=== PATIENT | male | born 1975 | race Caucasian/White ===

== ENCOUNTER 2021-06-09 00:27 | Emergency (ER) | payer MEDICAID, SELFPAY ==
[2021-06-09] VITALS (24 sets, daily range): BP systolic 94–150; BP diastolic 53–92; PULSE 64–122; RESP 15–43; TEMP 37.1; O2SAT 94–98
--- NOTE | 2021-06-09 00:30 | DI.RAD_ITS ---
Exam(s) XR PORTABLE CHEST AP EXAM: XR PORTABLE CHEST AP CLINICAL HISTORY: sob TECHNIQUE: 2D digital imaging was performed of the chest. One image was obtained. An AP view was ob tained. COMPARISON: No exams were available for comparison FINDINGS: MEDIASTINUM: Normal. HEART: Normal. PULMONARY VASCULATURE: Normal. LUNGS: Clear. PLEURAL SPACE: No pleural effusion or pneumothorax. BONE:Within normal limits for the patient's age. Cervical fixation hardware seen in the lower cervica l spine. OTHER FINDINGS:Normal. IMPRESSION: No acute pulmonary findings. DATA REPOSITORY: RADIATION DOSE DELIVERED:
--- NOTE | 2021-06-09 00:30 | RT.EKG_ITS ---
APPROVED REPORT Exam: Resting ECG Reason for Exam: sob Patient Location: E HR:102 bpm ECG Measurements Heart Rate 102 AXIS AK 165 P 81 QRSd 120 QRS 34 QT 361 T 38 QTc 471 Conclusion Sinus tachycardia...rate> 99 IVCD, consider RBBB...QRSd>120mS, terminal axis(90,270) ST elev, probable normal early repol pattern...ST elevation, age<55 PHysician: Sinus tachycardia, rate 102, intervals demonstrate a QTC of 470, and a QRS of 120, interve ntricular conduction delay, concern for right bundle branch block. No STEMI. No significant ST elev ation or depression.
--- NOTE | 2021-06-09 00:46 | ED.GENADUL_ITS ---
Discharge Plan Disposition Patient Disposition: HOME Condition: Good Discharge Details Clinical Impression: Anxiety Primary Care Provider: Lawrence Basurto ED Provider: Dereje Hyde Home Meds and New Rx's Prescriptions: No Action bupropion HCl [Wellbutrin XL] 150 mg tablet extended release 24 hr 150 mg PO QAM RF: 0 Discharge Instructions Instructions: Anxiety (ED) Additional Instructions: Your work-up has returned and is very reassuring. No evidence of a heart attack, pneumonia, or significant electrolyte abnormality. There is some blood in your urine, this may have been from a passed kidney stone. Please drink plenty of fluids, stay well-hydrated. Taking 3 days of crack cocaine is hard on your body, and your kidneys. Please avoid cocaine, and drink plenty of fluids and get plenty of rest. If you notice continued blood in your urine or pain come back for reassessment for potential on passed kidney stone. We have contacted the aircraft launch and recovery technician. They will contact you to help with any help or assistance you need battling the use of these medications. If you notice any worsening of your symptoms, or any new symptoms such as vomiting, diarrhea, fever, chills, shortness of breath, chest pain, numbness, weakness, or fainting , please return immediately to the emergency department for reevaluation. Please follow up with your primary care provider as soon as possible for reassessment and reevaluation. As always, it was a pleasure participating in your medical care today. Referrals: Lawrence Basurto [Primary Care Provider] - Medical Decision Making 46-year-old male who denies any significant past medical history except for previous kidney stones, GERD, left nasal polyp, anxiety, who presents today for medical evaluation. Patient states that for the last 3 days he has been doing notable amounts of crack cocaine. Last time he used was 2 to 3 hours ago. He states that he currently feels extremely jittery, short of breath, and states that he was fearful for his life. However he denies any homicidal or suicidal ideations. He has not had his Covid vaccine. He denies any hemoptysis. He denies IV drug use. He states he only smokes the cocaine. He denies any fever or chills. He does admit to his urine turning darker over the last day. No other complaints at this time. No other modifying factors. Physical exam demonstrates a tachycardic mildly tachypneic male with no hypoxemia. Lung sounds are clear. Mucous membranes are extremely dry. Differential is highest for withdrawal from his notable cocaine use over the last 3 days, but also Covid and dehydration and so the differential. We will rehydrate, monitor closely, and reassess. 2:45 AM Patient's Covid test has returned negative, chest x-ray negative for process. Patient does have minimal white count but no bandemia. Likely from 3 days straight of crack cocaine. Electrolytes normal. Creatinine is 1.8, GFR 41. Pneumonia unremarkable, CK unremarkable. Troponin negative. Thyroid function normal. Urine drug screen is positive for cocaine and cannabis. Alcohol negative. There is some blood noted the patient's urine. Repeat abdominal exam continues to show no abdominal or flank tenderness. Patient does have a notable history of kidney stones, likely from recently passed stone, or current small stone. With no abdominal pain otherwise to speak of there is no indication for emergent CT imaging. Recommend continued hydration at home and NSAIDs if needed. I did discuss with the patient how cocaine is challenging to a person's body, how some of his laboratory work-up is likely reflection of this. Recommended avoidance of cocaine, and follow-up with aircraft launch and recovery technician. If you notice any worsening of your symptoms, or any new symptoms such as vomiting, diarrhea, fever, chills, shortness of breath, chest pain, numbness, weakness, or fainting , please return immediately to the emergency department for reevaluation. Please follow up with your primary care provider as soon as possible for reassessment and reevaluation. As always, it was a pleasure participating in your medical care today. EKG 00: 55 Sinus tachycardia, rate 102, intervals demonstrate a QTC of 470, and a QRS of 120, interventricular conduction delay, concern for right bundle branch block. No STEMI. No significant ST elevation or depression. FINDINGS: Limitations: Imaging was obtained with lordotic patient positioning. Lungs: The lung padilla appear clear. Pleural spaces: No pleural effusion or pneumothorax is seen. Heart/Mediastinum: Cardiac monitoring leads overlie the exam. Heart size is normal. The mediastinal contours appear normal. Bones/joints: Lower anterior cervical fixation hardware is partially visualized. The visualized bony structures appear grossly intact, as seen. IMPRESSION: No active disease is seen in the chest. Thank you for allowing us to participate in the care of your patient. Dictated and Authenticated by: Armando Brady MD 06/09/2021 2:21 AM Eastern Time ([place] & [place]) HPI General Date/Time Provider Initiated Documentation: 06/09/21 00:35 . HPI Narrative: 46-year-old male who denies any significant past medical history except for previous kidney stones, GERD, left nasal polyp, anxiety, who presents today for medical evaluation. Patient states that for the last 3 days he has been doing notable amounts of crack cocaine. Last time he used was 2 to 3 hours ago. He states that he currently feels extremely jittery, short of breath, and states that he was fearful for his life. However he denies any homicidal or suicidal ideations. He has not had his Covid vaccine. He denies any hemoptysis. He denies IV drug use. He states he only smokes the cocaine. He denies any fever or chills. He does admit to his urine turning darker over the last day. No other complaints at this time. No other modifying factors. Related Data Home Medications Medication Instructions Recorded Confirmed bupropion HCl 150 mg 24 hr tablet, 150 mg PO QAM 05/19/21 06/09/21 extended release Allergies Allergy/AdvReac Type Severity Reaction Status Date / Time No Known Allergies Allergy Verified 06/09/21 01:06 Review of Systems All systems reviewed & are unremarkable except as noted in HPI and below PFSH Medical History Cervical disc displacement Chronic anxiety GERD (gastroesophageal reflux disease) Kidney stones Nasal obstruction Tobacco use Surgical History History of back surgery C5-C7 fusion in 2016 S/P orchiopexy Family History Other Cancer Heart disease Social History Smoking/Tobacco Use Status: Current every day Tobacco Type: cigarettes Smoking packs per day: 0.5 Smoking cigarettes per day: 10.0 Quit status: considering quitting Smoking risk assessment performed?: Yes Alcohol Intake: current Alcohol Intake frequency: holidays/special occasions only Drug use: Daily Substance use type: marijuana and crack/cocaine Household members: significant other Pets and animals: No Do you feel safe at home: Yes Do you feel safe in your relationship?: Yes Exam Narrative Exam Narrative: 1.Const: Well-nourished, Well-developed, appearing stated age 2.Eyes: PERRL, bilateral conjunctival injection, and symmetrical lids. 3.ENT: Atraumatic external nose and ears. Notably dry mucous membranes. Poor dentition throughout. Neck: Symmetric, trachea midline, No thyromegaly. 4.CVS: +S1/S2, No murmurs or gallops. Peripheral pulses 2+ and equal in all extremities. Brisk capillary refill in all extremities. 5.RESP: Unlabored respiratory effort. Clear to auscultation bilaterally. No wheezes rales or rhonchi 6.GI: Soft, Nontender/Nondistended, No hepatosplenomegaly. No guarding or rebound. 7.MSK: Normocephalic/Atraumatic, Extremities w/o deformity or ttp No cyanosis or clubbing, Normal movement of all extremities 8.Skin: Warm, Dry. No rashes or lesions. 9.Neuro: transaction manager II-XII grossly intact. Sensation grossly intact, no focal neurologic deficits. 10.Psych: (AAO) x3. Patient appears jittery and very anxious
[2021-06-09 00:56] LABS: Source Nasal/Nares
[2021-06-09 01:01] LABS: Abs Immature Grans 0.08 10^3/uL (0.0-0.06); Absolute Eosinophil Count 0.03 10^3/uL (0.0-0.7); Absolute Lymphocyte Count 2.07 10^3/uL (1.2-3.4); Absolute Monocyte Count 1.29 10^3/uL (0.1-0.8); Absolute Neutrophil Count 12.06 10^3/uL (1.2-6.7); Basophils % 0.4; Eosinophils % 0.2; HCT 43.6 % (40.0-50.0); HGB 14.4 g/dL (13.5-17.5); Immature Grans % 0.5; Lymphocytes % 13.3; MCV 90.8 fL (80-95); MPV 9.4 fL (8.0-11.0); Monocytes % 8.3; Neutrophils % 77.3; Nucleated RBC 0 %; Platelet Count 329 10^3/uL (130-400); RDW 12.3 % (11.8-14.1)
[2021-06-09 01:03] LABS: Absolute Basophil Count 0.06 10^3/uL (0.0-0.2)
[2021-06-09] MEDS: Normal Saline 1,000 ML 1000 ML IV (01:05)
[2021-06-09 01:09] LABS: Bilirubin Small (Negative); Blood Large (Negative); Clarity Cloudy (Clear); Glucose Negative (Negative); Ketones 15 mg/dL (Negative); Leukocyte Esterase Small (Negative); Nitrite Negative (Negative); Specific Gravity >= 1.030 (1.005-1.025); pH 5.5 (5-8)
[2021-06-09] MEDS: LORazepam 2 MG/ML VIAL 1 MG IVP (01:11)
[2021-06-09 01:13] LABS: TCO2 (Venous) 20 mmol/l (24-29); pCO2 (Venous) 39 mmHg (41-51); pH (Venous) 7.29 (7.31-7.41); pO2 (Venous) 53 mmHg
[2021-06-09 01:14] LABS: BE (Venous) -8 mmol/L (-2-3); HCO3 (Venous) 19 mmol/L (23-28); O2 Sat (Venous) 83 %
[2021-06-09 01:15] LABS: Ammonia 39 umol/L (11-32)
[2021-06-09 01:20] LABS: Troponin I < 0.05 ng/mL (<0.06)
[2021-06-09 01:21] LABS: *AMPHETAMINES SCREEN URINE Negative (Negative); *BARBITURATES SCREEN URINE Negative (Negative); *BENZODIAZEPINES SCREEN URINE Negative (Negative); Cannabinoids THC Positive (Negative); Cocaine Screen,Urine Positive (Negative); METHADONE URINE SCREEN Negative (Negative); OPIATES URINE SCREEN Negative (Negative); Tricyclic Antidepressants Negative (Negative)
[2021-06-09 01:23] LABS: C & S Indicated? Yes; RBC >50 HPF (0-2)
[2021-06-09 01:25] LABS: ALT 19 U/L (16-63); AST 20 U/L (15-37); Albumin 4.5 g/dL (3.4-5.0); Alkaline Phosphatase 96 U/L (46-116); Anion Gap 16.7 mmol/L (3-11); BUN 14 mg/dL (7-18); Bilirubin, Total 0.4 mg/dL (0.2-1.0); CO2 22.3 mmol/L (21.0-32.0); CREATININE 1.8 mg/dL (0.70-1.30); Calcium 9.1 mg/dL (8.5-10.1); Chloride 101 mmol/L (98-107); Estimated GFR 41.19 (mL/min/1.73m2); Glucose 124 mg/dL (74-106); Potassium 3.6 mmol/L (3.5-5.1); Sodium 140 mmol/L (136-145); TSH (W/Ref FT4) 1.15 uIU/mL (0.36-3.74); Total Protein 8.2 g/dL (6.4-8.2)
[2021-06-09 01:28] LABS: Creatine Kinase 373 U/L (39-308); ETHANOL BLOOD < 3.0 mg/dL (<10)
[2021-06-09 02:05] LABS: COVID-19 PCR Negative (Negative)
--- NOTE | 2021-06-09 02:21 | DI.VRAD_ITS ---
PROCEDURE INFORMATION: Exam: XR Chest Exam date and time: 06/09/2021 12:46 AM Age: 46 years old Clinical indication: Shortness of breath; Prior surgery; Surgery date: 6+ months; Surgery type: C-spine; Patient HX: SOB TECHNIQUE: Imaging protocol: XR of the chest. Views: 1 view. COMPARISON: No relevant prior studies available. FINDINGS: Limitations: Imaging was obtained with lordotic patient positioning. Lungs: The lung padilla appear clear. Pleural spaces: No pleural effusion or pneumothorax is seen. Heart/Mediastinum: Cardiac monitoring leads overlie the exam. Heart size is normal. The mediastinal contours appear normal. Bones/joints: Lower anterior cervical fixation hardware is partially visualized. The visualized bony structures appear grossly intact, as seen. IMPRESSION: No active disease is seen in the chest. Dictated and Authenticated by: Armando Brady MD. Ordering:USHA Reyez MD
--- NOTE | 2021-06-09 03:33 | NUR.NOTE ---
Referral to Care Management to get Drying Tunnel Operator involved with patient TAMI.Nursing Note:
--- NOTE | 2021-06-18 12:03 | PDOC.ERCMPRO ---
- If Service Date Differs Date of service: 06/18/21 Time of Service: 12:03 Care Management Progress Note Antolin was seen in the ED for anxiety. During the ED visit, he revealed using crack cocaine. At the request of ED provider, CM coordinates a referral to the [facility] who can offer support in quitting the use of cocaine.
== END 2021-06-09 02:52 | disposition home or self-care (01) ==
PROVIDERS: Emergency Provider Student in an Organized Health Care Education/Training Program; PCP Physician Assistant
DX: R00.0 Tachycardia, unspecified (principal); F41.9 Anxiety disorder, unspecified; F14.129 Cocaine abuse with intoxication, unspecified; R31.9 Hematuria, unspecified; R06.02 Shortness of breath; Z87.442 Personal history of urinary calculi; Z20.822 Contact with and (suspected) exposure to COVID-19; Z03.818 Encounter for observation for suspected exposure to other biological agents ruled out
CPT/HCPCS: 36415; 80053; 80307; 82550; 82805; 87635; 93005; 96361; 96374; 99285; 71045; 80320; 81003; 81015; 82140; 84443; 84484; 85025; 87086; 93010; J2060

== ENCOUNTER 2021-06-28 11:54 | Outpatient (CLI) | payer MEDICAID, SELFPAY ==
--- NOTE | 2021-06-28 07:30 | DI.CT_ITS ---
Exam(s) CT SINUS WO EXAM: CT SINUS WO CLINICAL HISTORY: left nasal polyp,j33.9. Evaluate for sinusitis. TECHNIQUE: Imaging Protocol: Axial computed tomography images with coronal and sagittal reformatted images were created and reviewed. COMPARISON: No exams were available for comparison FINDINGS: AXIAL IMAGES: Frontal sinuses: Moderate mucosal thickening is seen in the right frontal sinus. There is complete o pacification of the left frontal sinus. Ethmoid air cells: There is opacification of several ethmoid air cells, left greater than right. Maxillary sinuses: There is complete opacification of the left maxillary sinus. The right maxillary sinus is clear. Sphenoid sinus: There is mild mucosal thickening in the left sphenoid sinus. The right sphenoid sinu s is clear. Ostiomeatal complexes: There is obstruction of the left ostiomeatal complex. There is soft tissue se en in the left nasal passageway. This may represent nasal polyps. The right ostiomeatal complex is unremarkable. Osseous nasal septum: Midline. Visualized regional soft tissues: No acute findings. Orbits: Unremarkable. Bones: There is mild thickening of the latif of the left maxillary sinus which can be seen with chron ic sinus disease. Mastoid Air Cells: Normally aerated. IMPRESSION: 1. Findings of multifocal sinus disease, left greater than right. The findings are most marked in th e left maxillary and frontal sinuses and the left ethmoid air cells. 2. Soft tissue in the left nasal passageway which may represent nasal polyps. RADIATION DOSE DELIVERED: 136.94mGy.cm Total DLP DATA REPOSITORY: All CT scans at this facility are submitted to the National Radiology Data Registry (NRDR) Dose Index Registry (DIR) with the [employer] ([employer]). RADIATION OPTIMIZATION: All CT scans at this facility use at least one of these dose optimization te chniques: automated exposure control; mA and/or kV adjustment per patient size (includes targeted exa ms where dose is matched to clinical indication); or iterative reconstruction.
== END 2021-06-28 12:14 ==
PROVIDERS: PCP Physician Assistant; Visit Provider Otolaryngology
DX: J33.0 Polyp of nasal cavity (principal); J32.1 Chronic frontal sinusitis; J32.0 Chronic maxillary sinusitis
CPT/HCPCS: 70486

== ENCOUNTER 2021-08-06 02:56 | Outpatient (CLI) | payer MEDICAID, SELFPAY ==
[2021-08-06 11:17] LABS: Source Nasal/Nares
[2021-08-06 16:11] LABS: COVID-19 PCR Negative (Negative)
== END 2021-08-06 02:57 | disposition home or self-care (01) ==
LOC: LBO 02:57
PROVIDERS: PCP Physician Assistant; Visit Provider Otolaryngology
DX: Z20.822 Contact with and (suspected) exposure to COVID-19 (principal); Z01.812 Encounter for preprocedural laboratory examination
CPT/HCPCS: 87635

== ENCOUNTER 2021-08-09 07:27 | Day surgery (SDC) | payer MEDICAID, SELFPAY ==
[2021-08-09] VITALS (9 sets, daily range): BP systolic 113–145; BP diastolic 72–87; PULSE 65–81; RESP 13–27; TEMP 36.2–36.8; O2SAT 96–99; BMI 19.8
--- NOTE | 2021-08-09 06:38 | W.ANESPRE ---
General Info Date of Service Date Performed: 08/09/21 Height: 5 ft 8 in Weight: 58.967 kg Body Mass Index (BMI): 19.8 Surgical Procedure: Operation Date: 08/09/21 09:10 Proposed Procedures Side Surgeon p FESS W/POLYPECTOMY LEFT Left Tj Chacon MD Meds Allergies and Home Medications Allergies Allergy/AdvReac Type Severity Reaction Status Date / Time No Known Allergies Allergy Verified 08/09/21 07:38 Home Medication Medication Instructions Recorded bupropion HCl 150 mg 24 hr tablet, 150 mg PO QAM 05/19/21 extended release omeprazole 20 mg capsule,delayed 20 mg PO DAILY PRN 06/28/21 release Current Visit Medications: Current Medications Generic Name Dose Route Start Last Admin Trade Name Freq PRN Reason Stop Dose Admin Dexamethasone 12 mg 08/09/21 06:00 Dexamethasone 4 Mg/Ml Vial IVP 08/09/21 18:00 PREOP ASUNCION Cefazolin Sodium/Dextrose 2 gm in 50 mls @ 100 mls/hr 08/09/21 06:00 Ancef Duplex IVPB 08/09/21 18:00 PREOP ASUNCION Tranexamic Acid 600 mg/ Sodium 56 mls @ 336 mls/hr 08/09/21 06:00 Chloride IVPB 08/09/21 18:00 PREOP ASUNCION Ringer's Solution 1,000 mls @ 80 mls/hr 08/09/21 06:00 IV 09/05/21 23:59 INFUSION ASUNCION IV Miscellaneous Supplies 1 each 08/09/21 06:00 Iv Access IV 09/05/21 23:59 DIRECTED ASUNCION Sodium Chloride 0 ml 08/09/21 06:00 Normal Saline Flush 10 Ml Syr IV 09/05/21 23:59 PRN PRN Sodium Chloride 0 ml 08/09/21 06:00 Normal Saline 10 Ml Vial IJ 09/05/21 23:59 DIRECTED PRN Sterile Water 0 ml 08/09/21 06:00 Water,Injection,Sterile 10 Ml Vial IJ 09/05/21 23:59 DIRECTED PRN PFSH Active Problems Active Problems: Problem Status Onset Code Chronic maxillary sinusitis J32.0 Anxiety F41.9 Left nasal polyps J33.9 History of back surgery Z98.890 Chronic anxiety F41.9 Kidney stones N20.0 Tobacco use Z72.0 Cervical disc displacement M50.20 GERD (gastroesophageal reflux disease) K21.9 Nasal obstruction J34.89 Medical History Medical History Cervical disc displacement Chronic anxiety GERD (gastroesophageal reflux disease) Kidney stones Nasal obstruction Tobacco use Surgical History Surgical History History of back surgery C5-C7 fusion in 2016 S/P orchiopexy Tobacco Smoking/Tobacco Use Status: Current every day Tobacco Type: cigarettes Smoking packs per day: 0.5 Smoking cigarettes per day: 10.0 Quit Status: considering quitting Alcohol Alcohol Intake: current Alcohol intake frequency: holidays/special occasions only Substance Use Substance use: Daily Substance use type: marijuana Vital Signs and Lab Results Lab Results Blood Type / Crossmatch: No Data to Display Complete Blood Count: No Data to Display Complete Metabolic Panel: No Data to Display Liver Function Panel: No Data to Display Coagulation Panel: No Data to Display Cardiac Panel: No Data to Display Arterial Blood Gas: No Data to Display Venous Blood Gas: No Data to Display Pancreas Panel: No Data to Display Thyroid Panel: No Data to Display Infectious Disease: Coronavirus (COVID-19)(PCR) Negative (Negative) 08/06/21 11:16 08/06/21 Coronavirus 2019 Source Nasal/Nares 08/06/21 11:16 08/06/21 Blood Cultures: No Data to Display Toxicology Panel: No Data to Display Imaging and Studies Imaging and Studies Study information below may be from another EMR and interpreted by another provider. Please see original notes in EMR for more complete details. EKG Summary: 05/2021: sinus tach, RBBB, ?early repol Anesthesia Assessment and Plan Anesthesia History Personal History: No History of Anesthesia Complications Family History: No Family History of Anesthesia Complications Exercise Tolerance Exercise Tolerance: Metabolic Equivalents>4 Cardiac & Pulmonary Exam Cardiac Exam: Normal S1/S2 Heart Sounds Pulmonary Exam: Clear Bilateral Breath Sounds Implantable Cardiac Device Does patient have a Pacemaker or an ICD?: No Airway Exam Known Difficult Airway: No Mallampati Class: 2 Mouth Opening: Normal (> 3cm) Thyromental Distance: Greater than 3 cm Neck Range of Motion: Full ROM Neck Circumference: Normal Teeth Condition: Generalized Poor Dentition ASA Classification ASA Score: ASA 2 Emergency Case?: No NPO Status NPO Status: NPO Clears >2 hours, Solids >8 hours Anesthesia Plan Resuscitation Status: Full Code Anesthesia Technique: General Anesthesia Airway Planned: Endotracheal Tube Monitors Used: Standard Monitors Preoperative Comments:: 46 yo male with nasal polyps/obstruction/chronic sinusitis for FESS. Sig PMHx: smoker (tobacco/cannabis), occ EtOH, GERD, anxiety, s/p c5-c7 fusion. recently in the ED for anxiety, ? r/t smoking cocaine.
[2021-08-09] MEDS: Lactated Ringers 1,000 ML 80 ML IV (08:04)
[2021-08-09] MEDS: ceFAZolin 2 GM/50 ML BAG IVPB (08:48)
--- NOTE | 2021-08-09 09:15 | NASALBX_PTH ---
PATIENT: Antolin Swain LOC: [facility] U#:[id number] AGE/SX: 46/M ROOM: RE08/09/[address]: Tj Chacon MD : 1975 BED: DIS: 08/09/2021 SPEC #: [id number] RECD: 08/09/21 12:56 STATUS: MASOOD REQ #: [id number] HARDY: 08/09/21 09:[address]: Tj Chacon DEPT: Surgical Specimen RECD BY: Zuleika Mullen ENTERED: 08/09/21 12:58 SP TYPE: NASALBX OTHR DR: Lawrence Basurto Tissues: 1 - MUCOSA, NOS 2 - MUCOSA, NOS Procedures: GROSS AND MICRO LEVEL 3 Comments: [id number]
[2021-08-09] MEDS: Cocaine Nasal 4% 4 ML BTL (09:30)
[2021-08-09] MEDS: Bacitracin 30 GM TUBE (09:53)
--- NOTE | 2021-08-09 10:05 | W.PM.DSUDISC ---
Discharge Plan Disposition Patient Disposition: HOME Condition: Good Discharge Details Attending Provider: Tj Chacon Primary Care Provider: Lawrence Basurto Home Meds and New Rx's Prescriptions: New amoxicillin 875 mg tablet 875 mg PO BID 10 Days Qty: 20 RF: 0 No Action omeprazole 20 mg capsule,delayed release(DR/EC) 20 mg PO DAILY PRNRF: 0 bupropion HCl [Wellbutrin XL] 150 mg tablet extended release 24 hr 150 mg PO QAM RF: 0 Discharge Instructions Stand Alone Forms: ENT-FESS Instr. Ines Referrals: Tj Chacon MD [ [facility] STAFF PHYSICIAN] - (2 weeks. Please obtain apppointment prior to patients departure) Discharge Orders Discharge Orders: Discharge Order (Routine); Ordered 08/09/21 Ordered By: Tj Chacon
--- NOTE | 2021-08-09 10:10 | W.PM.OP ---
Operative Note Operative Note DATE OF PROCEDURE: 08/09/21 PRE-OP DIAGNOSIS: Left nasal polyposis with chronic maxillary/ethmoid/frontal sinusitis POST-OP DIAGNOSIS: other (Same but with fibrotic mass seemingly arising from the middle turbinate, broadly based) PROCEDURE: Functional endoscopic sinus surgery with left nasal polypectomy and reduction/biopsy of middle nasal cavity mass on the left SURGEON: Tj Chacon ANESTHESIA TYPE: General LMA/ETT Refer to Anesthesia Record ESTIMATED BLOOD LOSS: 50 PATHOLOGY: other (Left nasal polyp, left middle turbinate mass) COMPLICATIONS: None Patient was transported to: PACU Patient's condition: stable Indications: Patient with the above problems. Options were explained to the patient regarding further management. Consent was filled out and signed prior to surgery. Findings: Extensive nasal polyposis filling the left nasal cavity. Left fibrotic mass seemingly arising from the middle meatus or the middle turbinate. Broadly based. Left maxillary antrum widely patent, this was present and did not require any surgical intervention. The polyps and the mass did not seem to be arising from the left maxillary sinus. Frontal recess identified but not violated. Procedure Description: After obtaining an adequate level of general endotracheal anesthesia the patient was positioned in the supine position and prepped and draped in appropriate fashion. 1% lidocaine with 1/100,000 epinephrine was injected in the left polyps anteriorly, and then into the inferior turbinate on the left. Cocaine soaked nasal pledgets were left for 5 minutes in the left nasal cavity, and then the StraightShot microdebrider with a straight 3.5 mm cutting blade was used to debulk the polyps. As done, a fibrotic mass arising from the left middle meatus or left middle nasal cavity was encountered. This was found to be broadly based, and difficult to debulk with the StraightShot microdebrider. Biopsies of this were taken and sent separately. Because a defined stalk could not be identified, the decision was made to leave the superior one fourth of the mass. The left maxillary antrum was identified, and found to be widely patent. There did not appear to be any polyposis or purulent debris within the left maxillary sinus. The frontal recess was identified, and not violated. After ensuring adequate hemostasis, the patient was awakened and transported to the recovery room in stable condition. Bleeding remained minimal. I was present throughout the entire case.
[2021-08-09] MEDS: fentaNYL 100 MCG/2 ML VIAL IVP ×2 (10:42→10:53)
--- NOTE | 2021-08-09 10:58 | W.ANESPOSTOP ---
Postoperative Evaluation Date, Time and Location Date Performed: 08/09/21 Time Performed: 10:59 Patient Location: PACU Vital Signs Most Recent Imported Vital Signs: Most Recent Vital Signs Temp Pulse Resp BP Pulse Ox 36.2 C L 65 20 123/82 98 08/09/21 10:44 08/09/21 10:44 08/09/21 10:44 08/09/21 10:44 08/09/21 10:44 Pain Score Most Recent Pain Score: Most Recent Pain Score Pain Level 6 08/09/21 10:44 Assessment Mental Status: Awake (Alert & Oriented to Patient Baseline) Airway and Respiratory Function: Patent airway with normal (patient baseline) respiratory exam Cardiovascular Function: Hemodynamically Stable Hydration Status: Adequately Hydrated Nausea & Vomiting: No Nausea or Vomiting Pain: Pain is tolerable per patient Peripheral Nerve Block: Patient did not receive a nerve block
== END 2021-08-09 12:00 | disposition home or self-care (01) ==
PROVIDERS: PCP Physician Assistant; Visit Provider Otolaryngology
PROC: 09QM4ZZ Repair Nasal Septum, Percutaneous Endoscopic Approach (ICD-10-PCS; CPT 30520; principal; 2021-08-09 09:00)
DX: J32.8 Other chronic sinusitis (principal); J33.8 Other polyp of sinus
CPT/HCPCS: 31237; 88305; 88304; J0690; J1100; J2250; J2405; J3010